=== PATIENT | female | born 1945 | race Caucasian/White ===

== ENCOUNTER 2019-09-01 07:59 | Observation (INO) ==
[2019-09-01] MEDS ORDERED: ENOXAPARIN SODIUM 40 MG/0.4 ML SYRG SC SCH (11:45)
[2019-09-01] MEDS ORDERED: ALBUTEROL SULFATE 2.5 MG/0.5 ML VIAL.NEB IH PRN (11:49)
[2019-09-01] MEDS ORDERED: LEVOFLOXACIN IN DEXTROSE 5 % 750 MG/150 ML BAG IV SCH (12:00)
--- NOTE | 2019-09-01 12:01 | HP ---
Chief Complaint - Chief Complaint Date of Service: 09/01/19 Time of Service: 12:00 Chief Complaint: SOB History of Present Illness: Patient is a 73 y/o F with a PMHx of CAD with 3 stents, Type II DM, hypertenison, COPD, hypothyroidism, restless leg, and chronic pain here to establish care. Patient seem a little SOB and wheezy while walking back to the room. Patient previous PCP was Dr. Brower at [facility]. She is accompanied by her son. She is a poor historian on her PMHx. Drophammer Operator is Dr. Pitt. Patient states she has been SOB for a couple of weeks and not feeling good and previous PCP had placed her on prednisone for prevention of infection. Denies CP. States she uses oxygen overnight PRN. After review of the past medical history and vital signs and physical exam, noticed patient was having difficulty breathing saturating at 93% on room air with a respiratory rate of 24 remaining vital signs were stable. Administered DuoNeb treatment with improvement of symptoms. Ordered a stat chest x-ray which revealed fluid overload and concern for infectious process versus malignancy. Recommended CT chest follow-up. Will complete CT chest outpatient. Stat labs obtained and discussed with patient. Recommend patient be admitted for acute exacerbation of COPD and acute on chronic congestive heart failure. Initially patient was reluctant however she would like to be discharged by [facility]. Will request MR from Cardiology after discharge. Patient sent to the floor and admitted to [facility]. Medical History (Last Reviewed 09/01/19 @ 12:13 by Angie Lebron RN) CAD (coronary artery disease) COPD (chronic obstructive pulmonary disease) Chronic pain History of ganglion cyst Hypertension Hypothyroidism Restless leg Type II diabetes mellitus Surgical History: Surgical History (Last Reviewed 09/01/19 @ 12:13 by Angie Lebron RN) History of total hysterectomy History of coronary artery stent placement History of tonsillectomy Hx of appendectomy Family History: Family History (Last Reviewed 09/01/19 @ 12:13 by Angie Lebron RN) Father Diabetes Heart disease Mother Heart disease Sister Cancer mouth cancer Brother Cancer lung cancer Social History: (Last Reviewed 09/01/19 @ 12:14 by Angie Lebron RN) Social History: Marital status: / lives independently: Yes number of children: 3 Highest education level completed: high school graduate Service: No Tobacco: Smoking Status: Former smoker Tobacco: How many years used: 5 how long ago did patient quit smokin years ago Alcohol: alcohol intake: never Dietary Habits: caffeine: Yes caffeine comment: daily Type: coffee Review Of Systems (GEN) - Review of Systems Generalized/Overall Review: Present: Weakness, Fatigue. Absent: Fever Respiratory: Present: Shortness of Breath, Orthopnea, Wheezing. Absent: Cough Cardiac: Absent: Chest Pain, Edema Abdominal: Absent: Abdominal Pain Neurological: Present: Tingling - of LE BL Skin: Present: Dryness Immunizations: IMMUNIZATION HX Immunizations Up to Date Yes History of Influenza Vaccine No Hx Pneumococcal Vaccination More Information Required Allergies/Adverse Reactions: Allergies Allergy/AdvReac Type Severity Reaction Status Date / Time nitrofurantoin Allergy Intermediate Verified 09/01/19 12:14 [From Macrobid] nitrofurantoin Allergy Intermediate Verified 09/01/19 12:14 macrocrystalline [From Macrobid] Sulfa (Sulfonamide Allergy Intermediate Verified 09/01/19 12:14 Antibiotics) Home Medications: HOME MEDICATIONS Albuterol Sulfate [Albuterol Sulfate 2.5 MG/0.5ML] 1 vial INHALATION Q6H PRN 09/09/16 [Last Taken Unknown] Levothyroxine Sodium [Levo-T] 25 mcg PO DAILY 09/09/16 [Last Taken Unknown] Aspirin [Children's Aspirin] 81 mg PO DAILY 03/25/18 [Last Taken Unknown] Atorvastatin Calcium [Lipitor] 40 mg PO HS 03/25/18 [Last Taken Unknown] Calcitriol 0.25 mcg PO DAILY 03/25/18 [Last Taken Unknown] Isosorbide Mononitrate [Imdur] 30 mg PO DAILY 03/25/18 [Last Taken Unknown] Venlafaxine HCl [Venlafaxine HCl ER] 150 mg PO DAILY 03/25/18 [Last Taken Unknown] Betamethasone/Propylene Glyc [Betamethasone Dp Aug 0.05% Crm] 15 gm TOPICAL DAILY 09/01/19 [Last Taken Unknown] Cefdinir 300 mg PO BID 09/01/19 [Last Taken Unknown] Methylphenidate HCl [Ritalin (Methylphenidate)] 5 mg PO BID 09/01/19 [Last Taken Unknown] Metoprolol Tartrate 75 mg PO BID 09/01/19 [Last Taken Unknown] Saccharomyces Boulardii [Florastor] 250 mg PO BID 09/01/19 [Last Taken Unknown] gabapentin 300 mg capsule 600 mg PO TID cap 09/01/19 [Last Taken Unknown] guaifenesin 600 mg tablet, extended release 12 hr 600 mg PO BID 09/01/19 [Last Taken Unknown] melatonin 5 mg capsule 5 mg PO HS cap 09/01/19 [Last Taken Unknown] montelukast 10 mg tablet 10 mg PO DAILY 09/01/19 [Last Taken Unknown] Exam - Exam Constitutional: Present: Alert, Oriented x3, Cooperative, Well developed, Well nourished, Mild distress ENT Exam: Present: hearing grossly normal Neck: Present: non-tender, full range of motion, supple Respiratory: Present: chest non-tender, accessory muscle use, crackles - LL BL, wheezing - expiratory and diffuse, expiration (prolonged) Cardiovascular/Chest: Present: normal peripheral pulses, regular rate, rhythm, no edema, no JVD, no murmur Abdomen: Present: Normal bowel sounds, soft Extremity: Present: normal range of motion, non-tender, no pedal edema Skin Exam: Present: normal color, warm/dry Neurologic: Present: alert, oriented x 3 Appearance: Present: appropriate appearance Eye contact: Present: cooperative Assessment/Plan - Narrative Narrative: (1) Acute on chronic diastolic CHF (congestive heart failure) Problem: Acute - Diurese patient with Bumex 1mg IV BID - Continue lasix 40 mg PO BID - Daily weights - CXR in AM - Troponins x2 Q6H - Strict Intake and Output -1500ml fluid restriction (2) Acute exacerbation of chronic obstructive pulmonary disease (COPD) Problem: Acute - Levaquin 750 mg PO QD - Prednisone 10 mg PO QD - O2 PRN - Breating treatments of budenoside q12h, duo-neb q4-6h (3) CKD (chronic kidney disease) Problem: Chronic (4) Insulin dependent diabetes mellitus Problem: Chronic FEN: Heart Healthy Diet, Consistent Carbs, Fluid restriction of 1500 ml DVT PPX: Lovenox 40 mg SC Q24H CODE STATUS: Full Code Disposition: Anticipate discharge within 24-48 hours. - Assessment/Plan (1) Acute on chronic diastolic CHF (congestive heart failure) Problem: Acute (2) Acute exacerbation of chronic obstructive pulmonary disease (COPD) Problem: Acute (3) CKD (chronic kidney disease) Problem: Chronic (4) Insulin dependent diabetes mellitus Problem: Chronic
[2019-09-01] MEDS: ALBUTEROL SULFATE/IPRATROPIUM 3 ML NEBU IH SCH ×2 (12:40→18:14)
[2019-09-01] MEDS: GABAPENTIN 600 MG TABLET PO SCH ×2 (13:07→17:09)
[2019-09-01] MEDS: rOPINIRole HCL 1 MG TABLET PO SCH ×2 (13:08→17:09)
[2019-09-01] MEDS: BUMETANIDE 0.25 MG/ML VIAL IV SCH ×2 (13:31→21:21)
[2019-09-01] MEDS: INSULIN LISPRO 100 UNITS/ML VIAL SC SCH ×2 (17:10→21:26)
[2019-09-01] MEDS: BUDESONIDE 0.25 MG/2 ML VIAL.NEB IH SCH (18:15)
[2019-09-01] MEDS ORDERED: MELATONIN 3,000 MCG TABLET PO SCH (21:00)
[2019-09-01] MEDS ORDERED: ROSUVASTATIN CALCIUM 20 MG TABLET PO SCH (21:00)
[2019-09-01] MEDS: SACCHAROMYCES BOULARDII 250 MG CAPSULE PO SCH (21:23)
[2019-09-01] MEDS: FUROSEMIDE 40 MG TABLET PO SCH (21:29)
[2019-09-01] MEDS: METOPROLOL TARTRATE 25 MG TABLET PO SCH (21:32)
[2019-09-01] MEDS: INSULIN GLARGINE,HUM.REC.ANLOG 100 UNITS/ML VIAL SC SCH (21:33)
[2019-09-02] MEDS: ALBUTEROL SULFATE/IPRATROPIUM 3 ML NEBU IH SCH ×2 (04:16→06:07)
[2019-09-02] MEDS: BUDESONIDE 0.25 MG/2 ML VIAL.NEB IH SCH (06:03)
[2019-09-02 06:28] LABS: Hematocrit 38.4 % (37.0-47.0); Hemoglobin 11.9 gm/dL (12.5-16.0); Mean Cell Volume 92.5 fl (78-100); Mean Corpuscular Hemoglobin 28.7 pg (27-31); Mean Platelet Volume 11.2 fl (8-12.5); Neutrophil # 7.1 K/mm3 (1.3-6.0); Platelet Count 217 K/mm3 (150-450); Red Blood Count 4.15 M/mm3 (4.2-5.4); Red Cell Distribution Width 15.4 % (11.5-14.0); White Blood Count 9.1 K/mm3 (4.0-10.5)
[2019-09-02 06:29] LABS: Albumin * 2.2 gm/dl (3.4-5.0); Anion Gap 11.4 mmol/L (6.8-13.8); BUN/Creatinine Ratio 25.6 (9.0-21.6); Bilirubin, Total 0.4 mg/dL (0.0-1.1); Ca. Corrected For Albumin 9.8 mg/dL (8.4-10.2); Calcium * 8.7 mg/dL (7.9-10.9); Carbon Dioxide 31.2 mmol/L (24-32.6); Potassium 3.6 mmol/L (3.4-4.6); Total Protein 6.3 gm/dL (6.2-8.2)
[2019-09-02] MEDS ORDERED: LEVOTHYROXINE SODIUM 25 MCG TABLET PO SCH (07:00)
[2019-09-02] MEDS: INSULIN LISPRO 100 UNITS/ML VIAL SC SCH (07:49)
[2019-09-02] MEDS: SACCHAROMYCES BOULARDII 250 MG CAPSULE PO SCH (08:13)
[2019-09-02] MEDS: GABAPENTIN 600 MG TABLET PO SCH (08:14)
[2019-09-02] MEDS: METOPROLOL TARTRATE 25 MG TABLET PO SCH (08:14)
[2019-09-02] MEDS: FUROSEMIDE 40 MG TABLET PO SCH (08:14)
[2019-09-02] MEDS: BUMETANIDE 0.25 MG/ML VIAL IV SCH (08:15)
[2019-09-02] MEDS: rOPINIRole HCL 1 MG TABLET PO SCH (08:15)
[2019-09-02] MEDS: INSULIN GLARGINE,HUM.REC.ANLOG 100 UNITS/ML VIAL SC SCH (08:22)
[2019-09-02] MEDS ORDERED: ISOSORBIDE MONONITRATE 30 MG TAB.SR.24H PO SCH (09:00)
[2019-09-02] MEDS ORDERED: VENLAFAXINE HCL 150 MG CAP.SR.24H PO SCH (09:00)
[2019-09-02] MEDS ORDERED: predniSONE 10 MG TABLET PO SCH (09:00)
[2019-09-02] MEDS ORDERED: MONTELUKAST SODIUM 10 MG TABLET PO SCH (09:00)
[2019-09-02] MEDS ORDERED: FUROSEMIDE 40 MG PO SCH (09:00)
[2019-09-02] MEDS ORDERED: ASPIRIN 81 MG TAB.CHEW PO SCH (09:00)
[2019-09-02] MEDS ORDERED: CALCITRIOL 0.25 MCG CAPSULE PO SCH (09:00)
--- NOTE | 2019-09-02 09:02 | DS ---
(1) Acute on chronic diastolic CHF (congestive heart failure) Problem: Acute (2) Acute exacerbation of chronic obstructive pulmonary disease (COPD) Problem: Acute (3) Acute kidney injury superimposed on chronic kidney disease Problem: Acute (4) CKD (chronic kidney disease) Problem: Chronic Qualifiers: Chronic kidney disease stage: stage 3 (moderate) Qualified Code(s): N18.3 - Chronic kidney disease, stage 3 (moderate) (5) Insulin dependent diabetes mellitus Problem: Chronic Date of Discharge:: 09/02/19 Description of Stay: 73-year-old female with multiple comorbidities admitted from clinic for acute on chronic congestive heart failure and acute exacerbation of COPD. Vital signs in clinic or significant for tachypnea and oxygen saturation of 93% on room air. Physical examination was consistent with mild respiratory distress, use of accessory muscles, audible wheezing, on auscultation I appreciated prolonged expiratory wheezing minimal movement of air diffusely and crackles of the bilateral lower lobes. Stat chest x-ray was consistent with pulmonary vascular congestion and concern of an infiltrate which may be infectious versus malignancy. CT chest recommended for follow-up, will complete CT chest to be completed outpatient. CT chest ordered in clinic prior to admission. BNP upon admission was greater than 6000, cardiac work-up was largely unremarkable, CMP consistent with acute kidney injury with a creatinine of 1.79. On admission I could not determine if elevation of creatinine was a result of acute on chronic kidney injury as there were no previous records for comparison, however after overnight diuresis, creatinine improved to 1.5. In regards to acute on chronic congestive heart failure, patient started on Bumex 1 mg IV twice daily, continued Lasix 40 mg p.o. twice daily. Overnight patient had urine output of 1600 mL, with a balance deficit of 600ml. On physical examination, minimal crackles in the left lower lobe however significant improvement from admit. Patient established with a kapok machine operator to [facility], Dr. Pitt. . will try to obtain records from Dr. Pitt, if no records are available at follow-up visit will complete an echo and nuclear stress test. In regards to acute exacerbation of COPD patient on Levaquin 750 mg p.o. once daily patient is on day #2 of 7. Patient already on prednisone and was being weaned off, continue prednisone 10 mg. Patient has 5 tablets left at home, I will not discharge patient with a prescription for prednisone, advised patient to continue to weaning off prednisone upon. Started on breathing treatments of Budenoside and DuoNeb's. Discharge patient on duo nebs and budenoside and start ipratropium. Will complete PFTs and gold staging outpatient. Will optimize medication until PFTs are available, and adjust medications accordingly. In regards to insulin dependent diabetes mellitus type 2, A1c is 11.2. She came in stating she is on Lantus 50 units subcutaneous twice daily, however. Glucose was 65 this morning, discussed with patient i will decrease Lantus to 30 units at bedtime and continue with sliding scale 3 times daily with meals. Will provide patient with a prescription for lispro and paperwork for moderate slidin g scale dosing. Discussed about checking blood sugars 4 times a day and recording it and to bring blood sugar log to her follow-up appointment 1 week from discharge. In regards to sleep apnea, patient stated she does have a CPAP machine via [facility] however it is broken she is unable to adjust the same settings. RT was able to contact [facility] and they confirmed she does have a CPAP machine via them ,however there is no sleep study on record. Patient will contact [facility] for a new CPAP machine. Settings obtained from [facility] were 4/20, machine ordered during hospitalization with settings obtained from [facility] and auto titrated, and patient tolerated it well. Advised patient to continue with oxygen overnight at 2 L. Care phone number provided to patient on discharge paperwork. Patient voiced understanding and is agreeable with plan. Follow-up care: Will repeat CMP, BNP at next office visit. Pending results we will adjust Lasix dose. We will follow-up on [facility] referral outpatient for sleep study and overnight pulse oximetry and ensure patient has a CPAP machine. [facility] phone number provided on discharge paperwork patient is [phone]. Medication changes upon discharge: Lasix 40 mg p.o. twice daily, potassium 20 mEq daily, Bumex 1 mg twice daily for 3 days, Levaquin 750 mg p.o. daily for 6 days, prednisone 10 mg p.o. daily for 5 days (weaning off prednisone), DuoNeb every 6 hours as needed for shortness of breath or wheezing, begin aside twice daily, Yupelri 175mcg/3mL nebulizer daily, Lantus decreased to 30 units at bedtime, Lisinopril 5 mg PO QD, lispro 3 times daily with meals with moderate dose sliding scale. Medication list will be provided to patient and changes have been discussed with patient. Referrals: Memo completed on outpatient office visit Disposition: Patient is stable for discharge we will follow-up with patient in 1 week. Appointment will be provided upon discharge. Primary care provider: Dr. Bass Procedures Performed: none Results and Findings: Lab Pending Results 09/01/19 12:23: Troponin I 0.090 09/01/19 18:02: Troponin I 0.070 09/02/19 05:57: WBC 9.1, RBC 4.15 L, Hgb 11.9 L, Hct 38.4, MCV 92.5, MCH 28.7, MCHC 31.0 L, RDW 15.4 H, Plt Count 217, MPV 11.2, Immature Gran % (Auto) 0.70 H, Immature Gran # (Auto) 0.06 H, Neutrophils % 78.0 H, Lymphocytes % 11.7 L, Monocytes % 7.9, Eosinophils % 1.1, Basophils % 0.6, Nucleated RBC % 0.0, Neutrophils # 7.1 H, Lymphocytes # 1.06 L, Monocytes # 0.7, Eosinophils # 0.1, Absolute Basophils 0.1 09/02/19 05:57: Sodium 142, Plasma Sodium 141, Potassium 3.6, Chloride 103, Carbon Dioxide 31.2, Anion Gap 11.4, BUN 40 H, Creatinine 1.56 H, Est GFR (Non- Af Amer) 34 L, BUN/Creatinine Ratio 25.6 H, Random Glucose 65 L D, Calcium 8.7, Calcium Adj for Albumin 9.8, Total Bilirubin 0.4, AST 11, ALT 15 L, Alkaline Phosphatase 52, Total Protein 6.3, Albumin 2.2 L Discharge Location: Home Disposition: Home self-care Condition: Fair Discharge Activity: Activity as tolerated Discharge Diet: Consistent carbs, Low salt Referrals: Kiet Bass MD [Primary Care Provider] - One Week Problem Oriented Discharge Instructions to Patient/Family: Heart Failure, [id number] Additional Patient Instructions (free text): Call [facility] at [phone] to have someone come to assess your equipment. Prescriptions (Any new or edited meds): Albuterol Sulfate/Ipratropium [Duoneb 2.5-0.5MG/3ML Soln] 3 ml INHALATION Q6HRT #5 nebu Transmission Status: Received by [place], [place] Budesonide 1 mg INHALATION BID #5 ampul.neb Transmission Status: Pending to [place] Bumetanide [Bumex] 1 mg PO BID 3 Days #6 tab Transmission Status: P[place] to [place] Insulin Lispro [Humalog] 0 units SC ACHSINS #10 vial Transmission Status: Received [place] Potassium Chloride [Klor-Con M20] 20 meq PO DAILY #30 tab.er.prt Transmission Status: P[place] to [place] Insulin Glargine,Hum.rec.anlog [Lantus] 30 units SC HS #10 vial Transmission Status: Re[place] Furosemide [Lasix] 40 mg PO BID #60 tab Transmission Status: Re[place] Levofloxacin [Levaquin] 750 mg PO DAILY 6 Days #6 tab Transmission Status: Pending to [place] Revefenacin [Yupelri] 175 mcg INHALATION DAILY #5 vial.neb Transmission Status: Pending to [place] Complete Home Medications List: Complete Home Medication List: Levothyroxine Sodium [Levo-T] 25 mcg PO DAILY 09/09/16 Aspirin 81 mg PO DAILY 03/25/18 Atorvastatin Calcium [Lipitor] 40 mg PO HS 03/25/18 Calcitriol 0.25 mcg PO DAILY 03/25/18 Isosorbide Mononitrate [Imdur] 30 mg PO DAILY 03/25/18 Venlafaxine HCl [Venlafaxine HCl ER] 150 mg PO DAILY 03/25/18 Betamethasone/Propylene Glyc [Betamethasone Dp Aug 0.05% Crm] 15 gm TOPICAL DAILY 09/01/19 Methylphenidate HCl [Ritalin] 5 mg PO BID 09/01/19 Metoprolol Tartrate 75 mg PO BID 09/01/19 gabapentin 300 mg capsule 600 mg PO TID cap 09/01/19 guaifenesin 600 mg tablet, extended release 12 hr 600 mg PO BID 09/01/19 melatonin 5 mg capsule 5 mg PO HS cap 09/01/19 montelukast 10 mg tablet 10 mg PO DAILY 09/01/19 Albuterol Sulfate/Ipratropium [Duoneb 2.5-0.5MG/3ML Soln] 3 ml INHALATION Q6HRT #5 nebu 09/02/19 Budesonide 1 mg INHALATION BID #5 ampul.neb 09/02/19 Bumetanide [Bumex] 1 mg PO BID 3 Days #6 tab 09/02/19 Furosemide [Lasix] 40 mg PO BID #60 tab 09/02/19 Insulin Glargine,Hum.rec.anlog [Lantus] 30 units SC HS #10 vial 09/02/19 Insulin Lispro [Humalog] 0 units SC ACHSINS #10 vial 09/02/19 Levofloxacin [Levaquin] 750 mg PO DAILY 6 Days #6 tab 09/02/19 Lisinopril [Zestril] 10 mg PO QAM #30 tab 09/02/19 Potassium Chloride [Klor-Con M20] 20 meq PO DAILY #30 tab.er.prt 09/02/19 Revefenacin [Yupelri] 175 mcg INHALATION DAILY #5 vial.neb 09/02/19
[2019-09-02 11:04] VITALS: BP 124/61
== END 2019-09-02 11:33 | disposition home or self-care (01) ==
LOC: CCFAL → MS 07:59 → RAD 07:59
PROVIDERS: ADMIT Family Medicine; ATTEND Family Medicine
DX: N18.3 Chronic kidney disease, stage 3 (moderate); J44.1 Chronic obstructive pulmonary disease with (acute) exacerbation; I50.33 Acute on chronic diastolic (congestive) heart failure; E11.22 Type 2 diabetes mellitus with diabetic chronic kidney disease; Z79.4 Long term (current) use of insulin
CPT/HCPCS: 36415; 71020; 71046; 80053; 80061; 82043; 82570; 83036; 83519; 83880; 84443; 84484; 85025; 93005; 94640; 94660; 94664; 96365; 96372; 96375; G0378; G0379

== ENCOUNTER 2019-09-09 16:17 | Inpatient (IN) ==
[2019-09-09] MEDS ORDERED: NORMAL SALINE 500 ML IV PRN (16:35)
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
[2019-09-09 16:56] LABS: Mean Cell Volume 89.4 fl (78-100); Mean Corpuscular Hemoglobin 28.6 pg (27-31); Mean Platelet Volume 10.2 fl (8-12.5); Neutrophil # 4.7 K/mm3 (1.3-6.0); Neutrophil % 84.1 % (42-75.0); Platelet Count 83 K/mm3 (150-450); Red Blood Count 2.17 M/mm3 (4.2-5.4); Red Cell Distribution Width 15.4 % (11.5-14.0); White Blood Count 5.6 K/mm3 (4.0-10.5)
[2019-09-09 16:57] LABS: Hematocrit 19.4 % (37.0-47.0); Hemoglobin 6.2 gm/dL (12.5-16.0)
[2019-09-09 17:15] LABS: INR 1.22 INR (0.92-1.08); Partial Thrombolplastin Time 30.6 Seconds (24-32)
[2019-09-09 17:21] LABS: Anion Gap 12.1 mmol/L (6.8-13.8); BUN/Creatinine Ratio 30.6 (9.0-21.6); Bilirubin, Total 0.2 mg/dL (0.0-1.1); Carbon Dioxide 15.6 mmol/L (24-32.6); Magnesium 0.8 mg/dL (1.2-2.8); Potassium 2.7 mmol/L (3.4-4.6); Troponin I 0.04 ng/mL (0.00-0.10)
[2019-09-09 17:32] LABS: Ca. Corrected For Albumin 7.1 mg/dL (8.4-10.2)
[2019-09-09 17:44] LABS: Urine Bilirubin Negative (NEGATIVE); Urine Blood Negative /ul (NEGATIVE); Urine Ketone Negative (NEGATIVE); Urine Nitrite Negative (NEGATIVE); Urine Protein 100 mg/dL (NEGATIVE); Urine Specific Gravity >=1.030 SP.GR. (1.005-1.010); Urine Urobilinogen Normal (NORMAL)
[2019-09-09] MEDS ORDERED: NORMAL SALINE 500 ML IV ONE (17:51)
[2019-09-09] MEDS: POTASSIUM CHLORIDE IN WATER 100 ML IV SCH ×4 (18:04→21:57)
[2019-09-09] MEDS ORDERED: LEVOFLOXACIN IN DEXTROSE 5 % 750 MG/150 ML BAG IV ONE (18:22)
[2019-09-09] MEDS ORDERED: NORMAL SALINE 1,000 ML IV ONE ×2 (18:24→18:30)
[2019-09-09 18:29] LABS: Urine Appearance Clear (CLEAR); Urine Bacteria None Seen; Urine Color Yellow; Urine RBC None Seen /hpf (0-5); Urine WBC None Seen /hpf (0-5)
[2019-09-09] MEDS ORDERED: metroNIDAZOLE/SODIUM CHLORIDE 500 MG/100 ML BAG IV SCH (18:30)
[2019-09-09] MEDS ORDERED: LEVOFLOXACIN 500 MG TABLET PO SCH ×2 (19:45→22:21)
[2019-09-09] MEDS: metroNIDAZOLE 500 MG TABLET PO SCH (20:03)
[2019-09-09] MEDS ORDERED: FUROSEMIDE 10 MG/ML VIAL IV ONE (20:17)
--- NOTE | 2019-09-09 21:26 | HP ---
Chief Complaint - Chief Complaint Date of Service: 09/09/19 Time of Service: 20:00 Chief Complaint: Weakness, anemia, diarrhea, nausea vomiting. History of Present Illness: Nora Gage is a 73-year-old female admitted through the emergency room with nausea vomiting and diarrhea and with an acute anemia (hemoglobin 6.5 g) to which the etiology remains uncertain. She has been stabilized in ER with IV fluids and is had 1 unit of packed red blood cells. She is requesting Imodium for the diarrhea. We will Hemoccult each stool and screen for C. difficile. She was also hypokalemic and has received 2K riders out of 4 ordered. ER has already ordered Levaquin and metronidazole to be given IV but that require a third IV site. She believes she can take the pills instead and would like to try to instead of having a third IV placed. She has not vomited since she is been here. Since she had stabilized in the emergency room. And because we had staffing issues for the SCU I elected to admit her to general medical floor where we would do vital signs hourly for 4 hours and then every 2 hours through the night thereafter. She will get 20 mg of furosemide IV after the first unit because of her history of congestive failure. She has no signs or symptoms of CHF at this time. I will have them recheck hemoglobin hematocrit 2 hours after the second unit is infused. She will have morning lab ordered to recheck her electrolytes and renal status. Medical History (Last Reviewed 09/09/19 @ 16:39 by JOHNY Pérez) CAD (coronary artery disease) COPD (chronic obstructive pulmonary disease) Chronic pain History of ganglion cyst Hypertension Hypothyroidism Restless leg Type II diabetes mellitus Surgical History: Surgical History (Last Reviewed 09/09/19 @ 16:39 by JOHNY Pérez) History of total hysterectomy History of coronary artery stent placement History of tonsillectomy Hx of appendectomy Family History: Family History (Last Reviewed 09/09/19 @ 16:39 by JOHNY Pérez) Father Diabetes Heart disease Mother Heart disease Sister Cancer mouth cancer Brother Cancer lung cancer Social History: (Last Reviewed 09/09/19 @ 16:39 by JOHNY Pérez) Social History: Marital status: / lives independently: Yes number of children: 3 Highest education level completed: high school graduate Service: No Tobacco: Smoking Status: Former smoker Tobacco: How many years used: 5 how long ago did patient quit smokin years ago Alcohol: alcohol intake: never Dietary Habits: caffeine: Yes caffeine comment: daily Type: coffee Review Of Systems (GEN) - Review of Systems Generalized/Overall Review: Present: Weakness, Malaise EENTM: Present: No Symptoms Reported Respiratory: Present: No Symptoms Reported Cardiac: Present: No Symptoms Reported Abdominal: Present: Nausea, Vomiting, Diarrhea Genitourinary: Present: No Symptoms Reported Musculoskeletal: Present: No Symptoms Reported Neurological: Present: Anxiety, Weakness Skin: Present: No Symptoms Reported Endocrine: Present: No Symptoms Reported Immunizations: IMMUNIZATION HX Immunizations Up to Date Yes History of Influenza Vaccine No Hx Pneumococcal Vaccination More Information Required Allergies/Adverse Reactions: Allergies Allergy/AdvReac Type Severity Reaction Status Date / Time nitrofurantoin Allergy Intermediate Verified 09/01/19 12:14 [From Macrobid] nitrofurantoin Allergy Intermediate Verified 09/01/19 12:14 macrocrystalline [From Macrobid] Sulfa (Sulfonamide Allergy Intermediate Verified 09/01/19 12:14 Antibiotics) Home Medications: HOME MEDICATIONS Levothyroxine Sodium [Levo-T] 25 mcg PO DAILY 09/09/16 [Last Taken Unknown] Aspirin 81 mg PO DAILY 03/25/18 [Last Taken Unknown] Atorvastatin Calcium [Lipitor] 40 mg PO HS 03/25/18 [Last Taken Unknown] Calcitriol 0.25 mcg PO DAILY 03/25/18 [Last Taken Unknown] Isosorbide Mononitrate [Imdur] 30 mg PO DAILY 03/25/18 [Last Taken Unknown] Venlafaxine HCl [Venlafaxine HCl ER] 150 mg PO DAILY 03/25/18 [Last Taken Unknown] Betamethasone/Propylene Glyc [Betamethasone Dp Aug 0.05% Crm] 15 gm TOPICAL DAILY 09/01/19 [Last Taken Unknown] Methylphenidate HCl [Ritalin] 5 mg PO BID 09/01/19 [Last Taken Unknown] Metoprolol Tartrate 75 mg PO BID 09/01/19 [Last Taken Unknown] gabapentin 300 mg capsule 600 mg PO TID cap 09/01/19 [Last Taken Unknown] guaifenesin 600 mg tablet, extended release 12 hr 600 mg PO BID 09/01/19 [Last Taken Unknown] melatonin 5 mg capsule 5 mg PO HS cap 09/01/19 [Last Taken Unknown] montelukast 10 mg tablet 10 mg PO DAILY 09/01/19 [Last Taken Unknown] Albuterol Sulfate/Ipratropium [Duoneb 2.5-0.5MG/3ML Soln] 3 ml INHALATION Q6HRT #5 nebu 09/02/19 [Last Taken Unknown] Budesonide 1 mg INHALATION BID #5 ampul.neb 09/02/19 [Last Taken Unknown] Furosemide [Lasix] 40 mg PO BID #60 tab 09/02/19 [Last Taken Unknown] Insulin Glargine,Hum.rec.anlog [Lantus] 30 units SC HS #10 vial 09/02/19 [Last Taken Unknown] Insulin Lispro [Humalog] 0 units SC ACHSINS #10 vial 09/02/19 [Last Taken Unknown] Lisinopril [Zestril] 10 mg PO QAM #30 tab 09/02/19 [Last Taken Unknown] Potassium Chloride [Klor-Con M20] 20 meq PO DAILY #30 tab.er.prt 09/02/19 [Last Taken Unknown] Revefenacin [Yupelri] 175 mcg INHALATION DAILY #5 vial.neb 09/02/19 [Last Taken Unknown] Exam - Exam Vital Signs: Vital Signs - Last Taken Temp 36.6 C 09/09/19 19:08 Pulse 89 09/09/19 19:08 Resp 12 09/09/19 19:08 BP 146/63 09/09/19 19:08 Pulse Ox 97 09/09/19 19:08 Constitutional: Present: Alert, Oriented x3, Cooperative, Well developed, Well nourished, Mild distress, Elderly, Overweight ENT Exam: Present: normal ENT inspection, hearing grossly normal, pharynx normal, TMs normal Eye Exam: bilateral eye: normal inspection, PERRL, EOMI Neck: Present: non-tender, limited range of motion Back Exam: Present: normal inspection, no CVA tenderness, no vertebral tenderness Breasts: Present: Exam deferred Respiratory: Present: chest non-tender, lungs clear, normal breath sounds, no respiratory distress, no accessory muscle use Cardiovascular/Chest: Present: normal peripheral pulses, regular rate, rhythm, no chest tenderness, no edema, no gallop, no JVD, no murmur, no rub Peripheral Pulses: carotid (R): 2+, carotid (L): 2+, radial (R): 2+, radial (L): 2+ Abdomen: Present: Normal bowel sounds, soft, tender /Rectal: Present: Exam deferred Extremity: Present: normal range of motion, non-tender, normal inspection, no pedal edema, no calf tenderness, normal capillary refill Skin Exam: Present: pallor Lymphatic: Present: no adenopathy Neurologic: Present: hide washer II-XII nml as tested, no motor/sensory deficits, alert, normal mood/affect, oriented x 3 Appearance: Present: appropriate appearance, neat, no memory impairment, impaired insight Eye contact: Present: cooperative, good eye contact, normal speech Thoughts: Present: normal thought pattern, no apparent hallucination Diagnostic Studies: Abnormal Lab Results 09/09/19 09/09/19 09/09/19 Range/Units 16:45 16:45 16:45 RBC 2.17 L (4.2-5.4) M/mm3 Hgb 6.2 L* D (12.5-16.0) gm/dL Hct 19.4 L* D (37.0-47.0) % RDW 15.4 H (11.5-14.0) % Plt Count 83 L (150-450) K/mm3 Immature Gran % (Auto) 0.50 H (0.001-0.429) % Neutrophils % 84.1 H (42-75.0) % Lymphocytes % 9.2 L (20-51) % Lymphocytes # 0.51 L (1.5-3.5) k/mm3 PT 12.0 H (9.1-10.7) Seconds INR (Anticoag Therapy) 1.22 H (0.92-1.08) INR pO2 (83.0-108.0) mmHg Base Excess (-2.0-3.0) mmol/L ABG O2 Sat (Measured) (94.0-98.0) % Plasma Sodium 145 H (130-142) mmol/L Potassium 2.7 L D (3.4-4.6) mmol/L Chloride 117 H (97-106) mmol/L Carbon Dioxide 15.6 L (24-32.6) mmol/L BUN 56 H (3-23) mg/dL Creatinine 1.83 H (0.4-1.4) mg/dL Est GFR (Non-Af Amer) 29 L (60-130) mL/min BUN/Creatinine Ratio 30.6 H (9.0-21.6) Random Glucose 276 H (70-110) mg/dL Calcium Adj for Albumin 7.1 L (8.4-10.2) mg/dL Magnesium 0.8 L (1.2-2.8) mg/dL ALT 9 L (19-67) U/L Alkaline Phosphatase 29 L (50-170) U/L Total Protein 3.0 L (6.2-8.2) gm/dL Albumin 1.0 L (3.4-5.0) gm/dl Urine Protein (NEGATIVE) mg/dL Urine Glucose (UA) (NEGATIVE) mg/dL Prot Sulfosalicylic Acd (0) mg/dL Crossmatch 09/09/19 09/09/19 09/09/19 Range/Units 17:33 17:40 17:50 RBC (4.2-5.4) M/mm3 Hgb (12.5-16.0) gm/dL Hct (37.0-47.0) % RDW (11.5-14.0) % Plt Count (150-450) K/mm3 Immature Gran % (Auto) (0.001-0.429) % Neutrophils % (42-75.0) % Lymphocytes % (20-51) % Lymphocytes # (1.5-3.5) k/mm3 PT (9.1-10.7) Seconds INR (Anticoag Therapy) (0.92-1.08) INR pO2 226.6 H (83.0-108.0) mmHg Base Excess -3.4 L (-2.0-3.0) mmol/L ABG O2 Sat (Measured) 99.4 H (94.0-98.0) % Plasma Sodium (130-142) mmol/L Potassium (3.4-4.6) mmol/L Chloride (97-106) mmol/L Carbon Dioxide (24-32.6) mmol/L BUN (3-23) mg/dL Creatinine (0.4-1.4) mg/dL Est GFR (Non-Af Amer) (60-130) mL/min BUN/Creatinine Ratio (9.0-21.6) Random Glucose (70-110) mg/dL Calcium Adj for Albumin (8.4-10.2) mg/dL Magnesium (1.2-2.8) mg/dL ALT (19-67) U/L Alkaline Phosphatase (50-170) U/L Total Protein (6.2-8.2) gm/dL Albumin (3.4-5.0) gm/dl Urine Protein 100 H (NEGATIVE) mg/dL Urine Glucose (UA) 100 H (NEGATIVE) mg/dL Prot Sulfosalicylic Acd 3+ H (0) mg/dL Crossmatch See Detail Laboratory Results WBC 5.6 K/mm3 (4.0-10.5) 09/09/19 16:45 RBC 2.17 M/mm3 (4.2-5.4) L 09/09/19 16:45 Hgb 6.2 gm/dL (12.5-16.0) L* D 09/09/19 16:45 Hct 19.4 % (37.0-47.0) L* D 09/09/19 16:45 MCV 89.4 fl (78-100) 09/09/19 16:45 MCH 28.6 pg (27-31) 09/09/19 16:45 MCHC 32.0 g/dl (32-36) 09/09/19 16:45 RDW 15.4 % (11.5-14.0) H 09/09/19 16:45 Plt Count 83 K/mm3 (150-450) L 09/09/19 16:45 MPV 10.2 fl (8-12.5) 09/09/19 16:45 Immature Gran % (Auto) 0.50 % (0.001-0.429) H 09/09/19 16:45 Immature Gran # (Auto) 0.03 K/mm3 (0.000-0.0310) 09/09/19 16:45 Neutrophils % 84.1 % (42-75.0) H 09/09/19 16:45 Lymphocytes % 9.2 % (20-51) L 09/09/19 16:45 Monocytes % 4.5 % (0.0-9) 09/09/19 16:45 Eosinophils % 1.3 % (0.0-3.0) 09/09/19 16:45 Basophils % 0.4 % (0.0-1.0) 09/09/19 16:45 Nucleated RBC % 0.0 k/mm3 (0-1) 09/09/19 16:45 Neutrophils # 4.7 K/mm3 (1.3-6.0) 09/09/19 16:45 Lymphocytes # 0.51 k/mm3 (1.5-3.5) L 09/09/19 16:45 Monocytes # 0.3 k/mm3 (0.0-1.0) 09/09/19 16:45 Eosinophils # 0.1 k/mm3 (0.0-0.7) 09/09/19 16:45 Absolute Basophils 0.0 k/mm3 (0.0-0.1) 09/09/19 16:45 PT 12.0 Seconds (9.1-10.7) H 09/09/19 16:45 INR (Anticoag Therapy) 1.22 INR (0.92-1.08) H 09/09/19 16:45 PTT ([place]) 30.6 Seconds (24-32) 09/09/19 16:45 pCO2 41.3 mmHg (32.0-45.0) 09/09/19 17:50 pO2 226.6 mmHg (83.0-108.0) H 09/09/19 17:50 HCO3 22.1 mmol/L (21.0-28.0) 09/09/19 17:50 Total CO2 23.4 mmol/L (19.0-24.0) 09/09/19 17:50 Base Excess -3.4 mmol/L (-2.0-3.0) L 09/09/19 17:50 ABG pH 7.35 (7.35-7.45) 09/09/19 17:50 ABG O2 Sat (Measured) 99.4 % (94.0-98.0) H 09/09/19 17:50 Sodium 142 mmol/L (132-142) 09/09/19 16:45 Plasma Sodium 145 mmol/L (130-142) H 09/09/19 16:45 Potassium 2.7 mmol/L (3.4-4.6) L D 09/09/19 16:45 Chloride 117 mmol/L (97-106) H 09/09/19 16:45 Carbon Dioxide 15.6 mmol/L (24-32.6) L 09/09/19 16:45 Anion Gap 12.1 mmol/L (6.8-13.8) 09/09/19 16:45 BUN 56 mg/dL (3-23) H 09/09/19 16:45 Creatinine 1.83 mg/dL (0.4-1.4) H 09/09/19 16:45 Est GFR (Non-Af Amer) 29 mL/min (60-130) L 09/09/19 16:45 BUN/Creatinine Ratio 30.6 (9.0-21.6) H 09/09/19 16:45 Random Glucose 276 mg/dL (70-110) H 09/09/19 16:45 Lactic Acid, Venous 1.2 mmol/L (0.4-2.0) 09/09/19 18:22 Calcium mg/dL (7.9-10.9) 09/09/19 16:45 Calcium Adj for Albumin 7.1 mg/dL (8.4-10.2) L 09/09/19 16:45 Magnesium 0.8 mg/dL (1.2-2.8) L 09/09/19 16:45 Total Bilirubin 0.2 mg/dL (0.0-1.1) 09/09/19 16:45 AST 8 U/L (0-48) 09/09/19 16:45 ALT 9 U/L (19-67) L 09/09/19 16:45 Alkaline Phosphatase 29 U/L (50-170) L 09/09/19 16:45 Troponin I 0.040 ng/mL (0.00-0.10) 09/09/19 16:45 B-Natriuretic Peptide 526 pg/mL (5-550) 09/09/19 16:45 Total Protein 3.0 gm/dL (6.2-8.2) L 09/09/19 16:45 Albumin 1.0 gm/dl (3.4-5.0) L 09/09/19 16:45 Urine Color Yellow 09/09/19 17:33 Urine Appearance Clear (CLEAR) 09/09/19 17:33 Urine pH 5.0 pH (5.0-7.0) 09/09/19 17:33 Ur Specific [place] >=1.030 SP.GR. (1.005-1.010) 09/09/19 17:33 Urine Protein 100 mg/dL (NEGATIVE) H 09/09/19 17:33 Urine Glucose (UA) 100 mg/dL (NEGATIVE) H 09/09/19 17:33 Urine Ketones Negative mg/dL (NEGATIVE) 09/09/19 17:33 Urine Blood Negative /ul (NEGATIVE) 09/09/19 17:33 Urine Nitrate Negative (NEGATIVE) 09/09/19 17:33 Urine Bilirubin Negative mg/dl (NEGATIVE) 09/09/19 17:33 Prot Sulfosalicylic Acd 3+ mg/dL (0) H 09/09/19 17:33 Urine Urobilinogen Normal EU/dl (NORMAL) 09/09/19 17:33 Ur Leukocyte Esterase Negative /ul (NEGATIVE) 09/09/19 17:33 Urine RBC None seen /hpf (0-5) 09/09/19 17:33 Urine WBC None seen /hpf (0-5) 09/09/19 17:33 Ur Epithelial Cells None seen /hpf (0-5) 09/09/19 17:33 Urine Bacteria None seen (NONE) 09/09/19 17:33 Urine Culture Comments No culture indicated 09/09/19 17:33 Stool Occult Blood Negative 09/09/19 17:50 Blood Type O Positive 09/09/19 17:40 Antibody Screen Negative 09/09/19 17:40 Crossmatch See Detail 09/09/19 17:40 Assessment/Plan - Narrative Narrative: 1. Infuse a second unit of packed red blood cells 2. Administer furosemide 20 mg IV push after the first unit is infused 3. Allow Imodium 4. Hemoccult all stools until positive 5. Recheck morning lab of CBC and BMP 6. Start oral Levaquin and oral Flagyl 7. Check stool for C. difficile - Assessment/Plan (1) Acute anemia Problem: Acute (2) Diarrhea Problem: Acute (3) Nausea Problem: Acute (4) History of CHF (congestive heart failure) Problem: Acute (5) History of chronic kidney disease Problem: Acute
[2019-09-09] MEDS ORDERED: INSULIN GLARGINE,HUM.REC.ANLOG 100 UNITS/ML VIAL SC ONE (21:50)
[2019-09-09] MEDS ORDERED: INSULIN LISPRO 100 UNITS/ML VIAL SC ONE (21:50)
[2019-09-09] MEDS ORDERED: FUROSEMIDE 10 MG/ML VIAL ONE (21:54)
[2019-09-09] MEDS ORDERED: ACETAMINOPHEN 325 MG TABLET PO ONE (21:55)
[2019-09-09] MEDS ORDERED: ALBUTEROL SULFATE/IPRATROPIUM 3 ML NEBU IH SCH (22:30)
[2019-09-09] MEDS: rOPINIRole HCL 1 MG TABLET PO SCH (22:43)
[2019-09-09] MEDS: ALBUTEROL SULFATE/IPRATROPIUM 3 ML NEBU IH SCH (22:50)
[2019-09-09] MEDS: FAMOTIDINE 20 MG in DEXTROSE 5 % IN WATER 100 ML IV SCH ×2 (23:01)
[2019-09-09] MEDS: MELATONIN 3,000 MCG TABLET PO SCH (23:02)
[2019-09-09] MEDS ORDERED: LEVOFLOXACIN 250 MG TABLET ONE (23:04)
[2019-09-10] MEDS: ALBUTEROL SULFATE/IPRATROPIUM 3 ML NEBU IH SCH ×6 (02:07→22:06)
[2019-09-10 02:53] LABS: Hemoglobin 13.3 gm/dL (12.5-16.0)
[2019-09-10 06:47] LABS: Hemoglobin 13.4 gm/dL (12.5-16.0); Mean Cell Volume 87.8 fl (78-100); Mean Corpuscular Hemoglobin 28.7 pg (27-31); Mean Corpuscular Hgb Conc 32.7 g/dl (32-36); Neutrophil # 5.7 K/mm3 (1.3-6.0); Neutrophil % 85.6 % (42-75.0); Platelet Count 119 K/mm3 (150-450); Red Blood Count 4.67 M/mm3 (4.2-5.4); Red Cell Distribution Width 15.4 % (11.5-14.0); White Blood Count 6.7 K/mm3 (4.0-10.5)
[2019-09-10] MEDS: LEVOTHYROXINE SODIUM 25 MCG TABLET PO SCH (07:05)
[2019-09-10] MEDS: SUCRALFATE 1 G/10 ML UDC PO SCH ×4 (07:05→21:20)
[2019-09-10 07:07] LABS: Albumin * 2.2 gm/dl (3.4-5.0); Anion Gap 9.2 mmol/L (6.8-13.8); BUN/Creatinine Ratio 28.4 (9.0-21.6); Bilirubin, Total 0.6 mg/dL (0.0-1.1); Calcium * 7.9 mg/dL (7.9-10.9); Carbon Dioxide 26.6 mmol/L (24-32.6); Magnesium 1.8 mg/dL (1.2-2.8); Potassium 4.8 mmol/L (3.4-4.6); Total Protein 6.1 gm/dL (6.2-8.2)
--- NOTE | 2019-09-10 07:52 | PN ---
Subjective - Date and Time Seen Date: 09/10/19 Time: 07:50 Subjective Narrative: No acute events overnight. Responded wellto transfusions. Patient is still not feeling well. Requesting RLS medications. Patient appears lethargic. Objective - Review of Systems Generalized/Overall Review: Reports: Weakness, Fatigue Respiratory: Denies: Shortness of Breath Cardiac: Denies: Chest Pain, Edema Abdominal: Denies: Vomiting, Abdominal Pain Neurological: Denies: Headache Skin: Reports: Bruising - right wrist and hand - Vitals Vitals: Last Vital Signs Temp 36.5 C 09/10/19 06:45 Pulse 87 09/10/19 06:45 Resp 16 09/10/19 06:45 BP 108/47 09/10/19 06:45 Pulse Ox 96 09/10/19 07:18 - Abnormal Lab Findings Abnormal Lab Findings: Abnormal Lab Results 09/09/19 09/09/19 09/09/19 Range/Units 16:45 16:45 16:45 RBC 2.17 L (4.2-5.4) M/mm3 Hgb 6.2 L* D (12.5-16.0) gm/dL Hct 19.4 L* D (37.0-47.0) % RDW 15.4 H (11.5-14.0) % Plt Count 83 L (150-450) K/mm3 Immature Gran % (Auto) 0.50 H (0.001-0.429) % Neutrophils % 84.1 H (42-75.0) % Lymphocytes % 9.2 L (20-51) % Lymphocytes # 0.51 L (1.5-3.5) k/mm3 PT 12.0 H (9.1-10.7) Seconds INR (Anticoag Therapy) 1.22 H (0.92-1.08) INR pO2 (83.0-108.0) mmHg Base Excess (-2.0-3.0) mmol/L ABG O2 Sat (Measured) (94.0-98.0) % Plasma Sodium 145 H (130-142) mmol/L Potassium 2.7 L D (3.4-4.6) mmol/L Chloride 117 H (97-106) mmol/L Carbon Dioxide 15.6 L (24-32.6) mmol/L BUN 56 H (3-23) mg/dL Creatinine 1.83 H (0.4-1.4) mg/dL Est GFR (Non-Af Amer) 29 L (60-130) mL/min BUN/Creatinine Ratio 30.6 H (9.0-21.6) Random Glucose 276 H (70-110) mg/dL Calcium Adj for Albumin 7.1 L (8.4-10.2) mg/dL Magnesium 0.8 L (1.2-2.8) mg/dL ALT 9 L (19-67) U/L Alkaline Phosphatase 29 L (50-170) U/L Total Protein 3.0 L (6.2-8.2) gm/dL Albumin 1.0 L (3.4-5.0) gm/dl Urine Protein (NEGATIVE) mg/dL Urine Glucose (UA) (NEGATIVE) mg/dL Prot Sulfosalicylic Acd (0) mg/dL Crossmatch 09/09/19 09/09/19 09/09/19 Range/Units 17:33 17:40 17:50 RBC (4.2-5.4) M/mm3 Hgb (12.5-16.0) gm/dL Hct (37.0-47.0) % RDW (11.5-14.0) % Plt Count (150-450) K/mm3 Immature Gran % (Auto) (0.001-0.429) % Neutrophils % (42-75.0) % Lymphocytes % (20-51) % Lymphocytes # (1.5-3.5) k/mm3 PT (9.1-10.7) Seconds INR (Anticoag Therapy) (0.92-1.08) INR pO2 226.6 H (83.0-108.0) mmHg Base Excess -3.4 L (-2.0-3.0) mmol/L ABG O2 Sat (Measured) 99.4 H (94.0-98.0) % Plasma Sodium (130-142) mmol/L Potassium (3.4-4.6) mmol/L Chloride (97-106) mmol/L Carbon Dioxide (24-32.6) mmol/L BUN (3-23) mg/dL Creatinine (0.4-1.4) mg/dL Est GFR (Non-Af Amer) (60-130) mL/min BUN/Creatinine Ratio (9.0-21.6) Random Glucose (70-110) mg/dL Calcium Adj for Albumin (8.4-10.2) mg/dL Magnesium (1.2-2.8) mg/dL ALT (19-67) U/L Alkaline Phosphatase (50-170) U/L Total Protein (6.2-8.2) gm/dL Albumin (3.4-5.0) gm/dl Urine Protein 100 H (NEGATIVE) mg/dL Urine Glucose (UA) 100 H (NEGATIVE) mg/dL Prot Sulfosalicylic Acd 3+ H (0) mg/dL Crossmatch See Detail 09/10/19 09/10/19 Range/Units 06:38 06:38 RBC (4.2-5.4) M/mm3 Hgb (12.5-16.0) gm/dL Hct (37.0-47.0) % RDW 15.4 H (11.5-14.0) % Plt Count 119 L (150-450) K/mm3 Immature Gran % (Auto) 0.50 H (0.001-0.429) % Neutrophils % 85.6 H (42-75.0) % Lymphocytes % 7.8 L (20-51) % Lymphocytes # 0.52 L (1.5-3.5) k/mm3 PT (9.1-10.7) Seconds INR (Anticoag Therapy) (0.92-1.08) INR pO2 (83.0-108.0) mmHg Base Excess (-2.0-3.0) mmol/L ABG O2 Sat (Measured) (94.0-98.0) % Plasma Sodium (130-142) mmol/L Potassium 4.8 H D (3.4-4.6) mmol/L Chloride (97-106) mmol/L Carbon Dioxide (24-32.6) mmol/L BUN 89 H D (3-23) mg/dL Creatinine 3.13 H D (0.4-1.4) mg/dL Est GFR (Non-Af Amer) 15 L D (60-130) mL/min BUN/Creatinine Ratio 28.4 H (9.0-21.6) Random Glucose 241 H (70-110) mg/dL Calcium Adj for Albumin (8.4-10.2) mg/dL Magnesium (1.2-2.8) mg/dL ALT 18 L (19-67) U/L Alkaline Phosphatase (50-170) U/L Total Protein 6.1 L (6.2-8.2) gm/dL Albumin 2.2 L (3.4-5.0) gm/dl Urine Protein (NEGATIVE) mg/dL Urine Glucose (UA) (NEGATIVE) mg/dL Prot Sulfosalicylic Acd (0) mg/dL Crossmatch - Exam Constitutional: Present: Alert, Oriented x3, Cooperative ENT Exam: Present: hearing grossly normal Respiratory: Present: rales - diffuse Cardiovascular/Chest: Present: normal peripheral pulses, regular rate, rhythm, no JVD Abdomen: Present: soft, other - decreased bowel sounds Extremity: Present: normal range of motion, normal inspection, no pedal edema Skin Exam: Present: normal color, warm/dry Neurologic: Present: alert, oriented x 3 Appearance: Present: appropriate appearance Assessment/Plan Plan Narrative: -Concern for GI bleed. -Iron studies pending -Dr Neno MD (General Surgery), consulted for higher level of care, prep for surgery in AM -Responded well to 2units of blood will recheck CBC and CMP, if there is concern of ongoing acute bleed will order nuclear bleeding scan -Continous telemetry -VSS Q6H FEN: NPO at midnight DVT PPX: Hold anti-coagulant, SCDs CODE STATUS: Full code Disposition: Awaiting labs and will consider nuclear bleeding scan - Problems/Diagnosis (1) Insulin dependent diabetes mellitus Problem: Chronic (2) Acute kidney injury superimposed on chronic kidney disease Problem: Acute (3) Pneumonia Problem: Acute Qualifiers: Pneumonia type: due to unspecified organism Laterality: unspecified laterality Lung location: unspecified part of lung Qualified Code(s): J18.9 - Pneumonia, unspecified organism (4) Colitis Problem: Acute (5) Fall Problem: Acute Qualifiers: Encounter type: initial encounter Qualified Code(s): W19.XXXA - Unspecified fall, initial encounter (6) Contusion of hand, right Problem: Acute Qualifiers: Encounter type: initial encounter Qualified Code(s): S60.221A - Contusion of right hand, initial encounter (7) Symptomatic anemia Problem: Acute (8) Diarrhea Problem: Acute (9) Nausea Problem: Acute (10) Congestive heart failure Problem: Acute
[2019-09-10] MEDS: VENLAFAXINE HCL 150 MG CAP.SR.24H PO SCH (08:09)
[2019-09-10] MEDS: metroNIDAZOLE 500 MG TABLET PO SCH ×2 (08:09→21:21)
[2019-09-10] MEDS: GABAPENTIN 600 MG TABLET PO SCH ×3 (08:10→17:42)
[2019-09-10] MEDS: rOPINIRole HCL 1 MG TABLET PO SCH ×3 (08:10→17:42)
[2019-09-10] MEDS: POTASSIUM CHLORIDE 20 MEQ TABLET.SA PO SCH (08:11)
[2019-09-10 08:14] LABS: Iron 154 mcg/dL (35-120); Transferrin Sat. (% Sat.) 64 % (15-55)
[2019-09-10] MEDS ORDERED: REVEFENACIN 175 MCG inhalation SCH (09:00)
[2019-09-10] MEDS: FAMOTIDINE 20 MG in DEXTROSE 5 % IN WATER 100 ML IV SCH ×4 (11:00→21:35)
[2019-09-10] MEDS: SODIUM, POTASSIUM,MAG SULFATES 1 KIT KIT PO ONE (11:03)
--- NOTE | 2019-09-10 11:49 | CONS ---
[facility] - General Date of Service: 09/10/19 Narrative: Anemia Source: patient Exam Limitations: no limitations - History of Present Illness Initial Comments: Nora is a pleasant 73-year-old female who was admitted with anemia. She denies any hematemesis. She denies any rectal bleeding. She denies abdominal pain. She believes that her last colonoscopy was a couple years ago. She is not taking any blood thinners. She had a fall yesterday. Her INR is 1.2. Her creatinine is elevated. Timing/Duration: 24 hours Severity: moderate Modifying Factors - (Worsens): Reports: movement Modifying Factors - (Improves): Reports: immobilization Associated Symptoms: denies symptoms Allergies/Adverse Reactions: Allergies nitrofurantoin [From Macrobid] Allergy (Intermediate, Verified 09/09/19 21:18) nitrofurantoin macrocrystalline [From Macrobid] Allergy (Intermediate, Verified 09/09/19 21:18) Sulfa (Sulfonamide Antibiotics) Allergy (Intermediate, Verified 09/09/19 21:18) Home Medications: Home Medications Medication Instructions Recorded Last Taken Levothyroxine Sodium [Levo-T] 25 mcg PO DAILY 09/09/16 Unknown Aspirin 81 mg PO DAILY 03/25/18 Unknown Atorvastatin Calcium [Lipitor] 40 mg PO HS 03/25/18 Unknown Calcitriol 0.25 mcg PO DAILY 03/25/18 Unknown Isosorbide Mononitrate [Imdur] 30 mg PO DAILY 03/25/18 Unknown Venlafaxine HCl [Venlafaxine HCl 150 mg PO DAILY 03/25/18 Unknown ER] Betamethasone/Propylene Glyc 15 gm TOPICAL DAILY 09/01/19 Unknown [Betamethasone Dp Aug 0.05% Crm] Methylphenidate HCl [Ritalin] 5 mg PO BID 09/01/19 Unknown Metoprolol Tartrate 75 mg PO BID 09/01/19 Unknown gabapentin 300 mg capsule 600 mg PO TID cap 09/01/19 Unknown melatonin 5 mg capsule 5 mg PO HS cap 09/01/19 Unknown montelukast 10 mg tablet 10 mg PO DAILY 09/01/19 Unknown Budesonide 1 mg INHALATION BID #5 ampul.neb 09/02/19 Unknown Furosemide [Lasix] 40 mg PO BID #60 tab 09/02/19 Unknown Insulin Glargine,Hum.rec.anlog 30 units SC HS #10 vial 09/02/19 Unknown [Lantus] Insulin Lispro [Humalog] 0 units SC ACHSINS #10 vial 09/02/19 Unknown Lisinopril [Zestril] 10 mg PO QAM #30 tab 09/02/19 Unknown Potassium Chloride [Klor-Con M20] 20 meq PO DAILY #30 tab.er.prt 09/02/19 Unknown Revefenacin [Yupelri] 175 mcg INHALATION DAILY #5 09/02/19 Unknown vial.neb Albuterol Sulfate/Ipratropium 3 ml INHALATION Q4H 09/09/19 Unknown [Duoneb 2.5-0.5MG/3ML Soln] Saccharomyces Boulardii [Florastor] 250 mg PO BID 09/09/19 Unknown guaiFENesin [Mucus Relief ER] 600 mg PO BID 09/09/19 Unknown rOPINIRole HCL [Requip] 1 mg PO TID 09/09/19 Unknown Medications - Medications Current Medications: Current Medications Albuterol/Ipratropium (Duoneb 2.5-0.5mg/3ml Soln) 3 ml IH Q4HRT [facility] Stop: 10/09/19 23:01 Last Admin: 09/10/19 10:34 Dose: 3 ml Documented by: Gabapentin (Neurontin) 600 mg PO TID [facility] Stop: 10/10/19 09:01 Last Admin: 09/10/19 08:10 Dose: 600 mg Documented by: Sodium Chloride (Sodium Chloride 0.9%) 500 mls @ 999 mls/hr IV .Q31M PRN PRN Reason: HYDRATION Stop: 10/09/19 16:36 Last Infusion: 09/09/19 17:53 Dose: Infused Documented by: Famotidine 20 mg/ Dextrose/ (Water) 102 mls @ 400 mls/hr IV Q12H [facility] Stop: 10/09/19 22:16 Last Admin: 09/10/19 11:00 Dose: 400 mls/hr Documented by: Levofloxacin (Levaquin) 500 mg PO Q48H [facility]; Protocol Stop: 10/09/19 22:17 Last Admin: 09/09/19 23:07 Dose: 500 mg Documented by: Levothyroxine Sodium (Synthroid) 25 mcg PO DAILY@0700 [facility] Stop: 10/10/19 07:01 Last Admin: 09/10/19 07:05 Dose: 25 mcg Documented by: Melatonin (Melatonin) 6,000 mcg PO HS [facility] Stop: 10/09/19 22:46 Last Admin: 09/09/19 23:02 Dose: Not Given Documented by: Metronidazole (Flagyl) 500 mg PO BID [facility]; Protocol Stop: 10/09/19 21:01 Last Admin: 09/10/19 08:09 Dose: 500 mg Documented by: Potassium Chloride (K-Dur) 20 meq PO DAILY [facility] Stop: 10/10/19 09:01 Last Admin: 09/10/19 08:11 Dose: Not Given Documented by: Ropinirole HCl (Requip) 1 mg PO TID [facility] Stop: 10/09/19 22:31 Last Admin: 09/10/19 08:10 Dose: 1 mg Documented by: Sucralfate (Carafate Suspension) 1 g PO [facility] Stop: 10/10/19 07:01 Last Admin: 09/10/19 07:05 Dose: 1 g Documented by: Venlafaxine HCl (Effexor Xr) 150 mg PO DAILY [facility] Stop: 10/10/19 09:01 Last Admin: 09/10/19 08:09 Dose: 150 mg Documented by: Review of Systems - Review of Systems Generalized/Overall Review: Present: Weakness, Malaise EENTM: Present: No Symptoms Reported Respiratory: Present: No Symptoms Reported Cardiac: Present: No Symptoms Reported Abdominal: Present: No Symptoms Reported Genitourinary: Present: No Symptoms Reported Musculoskeletal: Present: No Symptoms Reported Neurological: Present: No Symptoms Reported Skin: Present: No Symptoms Reported Endocrine: Present: No Symptoms Reported Physical Examination - Exam Vital Signs: Vital Signs - Last Taken Temp 36.6 C 09/10/19 10:16 Pulse 83 09/10/19 10:44 Resp 20 09/10/19 10:44 BP 134/69 09/10/19 10:16 Pulse Ox 91 L 09/10/19 10:34 O2 Oxygen Delivery Method Room Air Constitutional: Present: Alert, Oriented x3, Cooperative ENT Exam: Present: hearing grossly normal Eye Exam: right eye: normal inspection Neck: Present: non-tender Breasts: Present: Exam deferred Respiratory: Present: lungs clear, normal breath sounds, no respiratory distress Cardiovascular/Chest: Present: regular rate, rhythm Abdomen: Present: soft, nontender, no rebound tenderness. 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 nml as tested Appearance: Present: appropriate appearance Eye contact: Present: cooperative, good eye contact, normal speech Thoughts: Present: normal thought pattern, no apparent hallucination - Results and Findings: Lab/Microbiology results last 24 hrs: Abnormal/Pending Laboratory Last 24 HRS 09/10/19 09/10/19 09/10/19 07:58 06:38 06:38 RBC Hgb Hct RDW 15.4 H Plt Count 119 L Immature Gran % (Auto) 0.50 H Neutrophils % 85.6 H Lymphocytes % 7.8 L Lymphocytes # 0.52 L PT INR (Anticoag Therapy) pO2 Base Excess ABG O2 Sat (Measured) Plasma Sodium Potassium 4.8 H D Chloride Carbon Dioxide BUN 89 H D Creatinine 3.13 H D Est GFR (Non-Af Amer) 15 L D BUN/Creatinine Ratio 28.4 H Random Glucose 241 H Calcium Adj for Albumin Magnesium Iron 154 H TIBC 241 L Transferrin % Sat 64 H ALT 18 L Alkaline Phosphatase Total Protein 6.1 L Albumin 2.2 L Urine Protein Urine Glucose (UA) Prot Sulfosalicylic Acd Crossmatch 09/09/19 09/09/19 09/09/19 17:50 17:40 17:33 RBC Hgb Hct RDW Plt Count Immature Gran % (Auto) Neutrophils % Lymphocytes % Lymphocytes # PT INR (Anticoag Therapy) pO2 226.6 H Base Excess -3.4 L ABG O2 Sat (Measured) 99.4 H Plasma Sodium Potassium Chloride Carbon Dioxide BUN Creatinine Est GFR (Non-Af Amer) BUN/Creatinine Ratio Random Glucose Calcium Adj for Albumin Magnesium Iron TIBC Transferrin % Sat ALT Alkaline Phosphatase Total Protein Albumin Urine Protein 100 H Urine Glucose (UA) 100 H Prot Sulfosalicylic Acd 3+ H Crossmatch See Detail 09/09/19 09/09/19 09/09/19 16:45 16:45 16:45 RBC 2.17 L Hgb 6.2 L* D Hct 19.4 L* D RDW 15.4 H Plt Count 83 L Immature Gran % (Auto) 0.50 H Neutrophils % 84.1 H Lymphocytes % 9.2 L Lymphocytes # 0.51 L PT 12.0 H INR (Anticoag Therapy) 1.22 H pO2 Base Excess ABG O2 Sat (Measured) Plasma Sodium 145 H Potassium 2.7 L D Chloride 117 H Carbon Dioxide 15.6 L BUN 56 H Creatinine 1.83 H Est GFR (Non-Af Amer) 29 L BUN/Creatinine Ratio 30.6 H Random Glucose 276 H Calcium Adj for Albumin 7.1 L Magnesium 0.8 L Iron TIBC Transferrin % Sat ALT 9 L Alkaline Phosphatase 29 L Total Protein 3.0 L Albumin 1.0 L Urine Protein Urine Glucose (UA) Prot Sulfosalicylic Acd Crossmatch - Assessments/Findings (1) Acute anemia Problem: Acute Plan - Plan Plan: Patient has significant anemia which has improved with blood transfusion. We will plan to do an upper and lower endoscopy tomorrow to evaluate. We will need to monitor her creatinine with her bowel prep. We can do her upper and lower endoscopy at 8 AM tomorrow. She denies ever having a pill endoscopy done.
[2019-09-10 12:02] LABS: Hematocrit 41.6 % (37.0-47.0); Hemoglobin 13.7 gm/dL (12.5-16.0); Mean Cell Volume 88.3 fl (78-100); Mean Corpuscular Hemoglobin 29.1 pg (27-31); Mean Corpuscular Hgb Conc 32.9 g/dl (32-36); Mean Platelet Volume 10.5 fl (8-12.5); Neutrophil # 5.2 K/mm3 (1.3-6.0); Neutrophil % 83.6 % (42-75.0); Platelet Count 115 K/mm3 (150-450); Red Blood Count 4.71 M/mm3 (4.2-5.4); Red Cell Distribution Width 15.5 % (11.5-14.0); White Blood Count 6.2 K/mm3 (4.0-10.5)
[2019-09-10 12:14] LABS: Albumin * 2.4 gm/dl (3.4-5.0); Anion Gap 16.4 mmol/L (6.8-13.8); BUN/Creatinine Ratio 27.6 (9.0-21.6); Bilirubin, Total 0.5 mg/dL (0.0-1.1); Ca. Corrected For Albumin 9.6 mg/dL (8.4-10.2); Calcium * 8.6 mg/dL (7.9-10.9); Carbon Dioxide 22.6 mmol/L (24-32.6); Total Protein 6.4 gm/dL (6.2-8.2)
[2019-09-10] MEDS: INSULIN LISPRO 100 UNITS/ML VIAL SC SCH ×2 (17:44→21:24)
[2019-09-10] MEDS ORDERED: INSULIN GLARGINE,HUM.REC.ANLOG 100 UNITS/ML VIAL SC SCH (21:00)
[2019-09-10] MEDS: MELATONIN 3,000 MCG TABLET PO SCH (21:21)
[2019-09-11] MEDS: ALBUTEROL SULFATE/IPRATROPIUM 3 ML NEBU IH SCH ×4 (02:03→14:21)
[2019-09-11] MEDS: SODIUM, POTASSIUM,MAG SULFATES 1 KIT KIT PO ONE (05:28)
[2019-09-11] MEDS: LEVOTHYROXINE SODIUM 25 MCG TABLET PO SCH (06:59)
[2019-09-11] MEDS: GABAPENTIN 600 MG TABLET PO SCH ×3 (07:00→12:04)
[2019-09-11] MEDS: rOPINIRole HCL 1 MG TABLET PO SCH ×3 (07:00→12:04)
[2019-09-11] MEDS: SUCRALFATE 1 G/10 ML UDC PO SCH ×2 (07:03→11:09)
--- NOTE | 2019-09-11 07:44 | ANES ---
Anesthesia Pre Procedure Eval Vitals/Labs: Last Vital Signs Temp 36.5 C 09/11/19 06:47 Pulse 84 09/11/19 06:47 Resp 12 09/11/19 06:47 BP 141/68 09/11/19 06:47 Pulse Ox 99 09/11/19 06:47 HOME MEDICATIONS Levothyroxine Sodium [Levo-T] 25 mcg PO DAILY 09/09/16 [Last Taken Unknown] Aspirin 81 mg PO DAILY 03/25/18 [Last Taken Unknown] Atorvastatin Calcium [Lipitor] 40 mg PO HS 03/25/18 [Last Taken Unknown] Calcitriol 0.25 mcg PO DAILY 03/25/18 [Last Taken Unknown] Isosorbide Mononitrate [Imdur] 30 mg PO DAILY 03/25/18 [Last Taken Unknown] Venlafaxine HCl [Venlafaxine HCl ER] 150 mg PO DAILY 03/25/18 [Last Taken Unknown] Betamethasone/Propylene Glyc [Betamethasone Dp Aug 0.05% Crm] 15 gm TOPICAL DAILY 09/01/19 [Last Taken Unknown] Methylphenidate HCl [Ritalin] 5 mg PO BID 09/01/19 [Last Taken Unknown] Metoprolol Tartrate 75 mg PO BID 09/01/19 [Last Taken Unknown] gabapentin 300 mg capsule 600 mg PO TID cap 09/01/19 [Last Taken Unknown] melatonin 5 mg capsule 5 mg PO HS cap 09/01/19 [Last Taken Unknown] montelukast 10 mg tablet 10 mg PO DAILY 09/01/19 [Last Taken Unknown] Budesonide 1 mg INHALATION BID #5 ampul.neb 09/02/19 [Last Taken Unknown] Furosemide [Lasix] 40 mg PO BID #60 tab 09/02/19 [Last Taken Unknown] Insulin Glargine,Hum.rec.anlog [Lantus] 30 units SC HS #10 vial 09/02/19 [Last Taken Unknown] Insulin Lispro [Humalog] 0 units SC ACHSINS #10 vial 09/02/19 [Last Taken Unknown] Lisinopril [Zestril] 10 mg PO QAM #30 tab 09/02/19 [Last Taken Unknown] Potassium Chloride [Klor-Con M20] 20 meq PO DAILY #30 tab.er.prt 09/02/19 [Last Taken Unknown] Revefenacin [Yupelri] 175 mcg INHALATION DAILY #5 vial.neb 09/02/19 [Last Taken Unknown] Albuterol Sulfate/Ipratropium [Duoneb 2.5-0.5MG/3ML Soln] 3 ml INHALATION Q4H 09/09/19 [Last Taken Unknown] Saccharomyces Boulardii [Florastor] 250 mg PO BID 09/09/19 [Last Taken Unknown] guaiFENesin [Mucus Relief ER] 600 mg PO BID 09/09/19 [Last Taken Unknown] rOPINIRole HCL [Requip] 1 mg PO TID 09/09/19 [Last Taken Unknown] Allergies/Adverse Reactions: Allergies Allergy/AdvReac Type Severity Reaction Status Date / Time nitrofurantoin Allergy Intermediate Verified 09/09/19 21:18 [From Macrobid] nitrofurantoin Allergy Intermediate Verified 09/09/19 21:18 macrocrystalline [From Macrobid] Sulfa (Sulfonamide Allergy Intermediate Verified 09/09/19 21:18 Antibiotics) - Planned Procedure Planned Procedure: EGD Medication List Reviewed:: Yes Allergies Verified: Yes Medical History (Last Reviewed 09/11/19 @ 07:43 by Sidney Topete CRNA) CAD (coronary artery disease) COPD (chronic obstructive pulmonary disease) Chronic pain History of ganglion cyst Hypertension Hypothyroidism Restless leg Type II diabetes mellitus Surgical History (Last Reviewed 09/11/19 @ 07:44 by Sidney Topete CRNA) History of total hysterectomy History of coronary artery stent placement History of tonsillectomy Hx of appendectomy Family History (Last Reviewed 09/11/19 @ 07:44 by Sidney Topete CRNA) Father Diabetes Heart disease Mother Heart disease Sister Cancer mouth cancer Brother Cancer lung cancer - Family Anesthesia History Family History:: no untoward family reactions to anesthesia, no familial bleeding tendencies, no family history of clotting disorders, no family history of premature - Airway/Neck/Teeth Teeth Condition: missing Denture Type: Full upper, Full lower Mallampatti Score: 2 Thyromental (T-M) distance: > 6 cm Mandibulo Hyoid distance: > 3 cm - Respiratory Respiratory Physical: decreased breath sounds Smoking Status: Former smoker Discussed smoking cessation including day of surgery: No Sleep Apnea currently treated: No Sleep Apnea by current assessment: No Discussed Risks/Treatment of RONY: No - Cardiovascular Tolerate Activity: Poor Heart Sounds: S1 & S2, Regular - Anesthesia Assessment and Plan ASA Class: PS, III Anesthesia Type Plan: MAC
[2019-09-11] MEDS ORDERED: LIDOCAINE HCL 20 ML VIAL ONE (07:48)
[2019-09-11] MEDS ORDERED: PROPOFOL VIAL IV ONE (07:48)
[2019-09-11 08:01] LABS: Hematocrit 42.6 % (37.0-47.0); Mean Corpuscular Hemoglobin 28.9 pg (27-31); Mean Corpuscular Hgb Conc 32.9 g/dl (32-36); Mean Platelet Volume 10.5 fl (8-12.5); Neutrophil # 4.3 K/mm3 (1.3-6.0); Neutrophil % 80.3 % (42-75.0); Platelet Count 115 K/mm3 (150-450); Red Blood Count 4.84 M/mm3 (4.2-5.4); Red Cell Distribution Width 15.5 % (11.5-14.0); White Blood Count 5.4 K/mm3 (4.0-10.5)
[2019-09-11 08:14] LABS: Albumin * 2.6 gm/dl (3.4-5.0); BUN/Creatinine Ratio 26.2 (9.0-21.6); Bilirubin, Total 0.4 mg/dL (0.0-1.1); Ca. Corrected For Albumin 9.6 mg/dL (8.4-10.2); Calcium * 8.8 mg/dL (7.9-10.9); Carbon Dioxide 28.4 mmol/L (24-32.6); Potassium 4.4 mmol/L (3.4-4.6); Total Protein 6.7 gm/dL (6.2-8.2)
--- NOTE | 2019-09-11 09:00 | OR ---
Operative Report - Dictated Report Narrative: Date of Service: 09/11/19 Procedure: EGD and Colonoscopy to ascending colon Pre-procedure diagnosis: Anemia Post-procedure diagnosis: Anemia, normal EGD, diverticulosis, poor prep Surgeon: Samuel RobertsO. Anesthesia: MAC Indication for procedure: Nora is a pleasant 74-year-old female who was admitted with anemia. Description of procedure: After appropriate informed consent was obtained, patient was taken to the endoscopy suite placed in the left lateral decubitus position. Monitors were applied, appropriate sedation was achieved. A lubricated gastroscope was inserted and advanced into the second portion of the duodenum. The scope was slowly withdrawn, the duodenum appeared normal. The scope was withdrawn to the antrum. An antral biopsy was taken. A biopsy for Ruma was also taken. The scope was retroflexed, the stomach appeared normal. The body of the stomach also appeared normal. Scope was slowly withdrawn to the GE junction, the Z line appeared normal. The excess air was suctioned and the scope was slowly removed. Under the same sedation, a digital rectal exam was done which was normal. A lubricated colonoscope was inserted and advanced toward the cecum. The scope was able to be advanced to the acsending colon. The prep was poor and there were chunks of food present. The scope was slowly and sequentially withdrawn. There was diverticulosis present in the sigmoid colon. No other abnormalities were seen. Complications: none Specimens to pathology: none Estimated blood loss: minimal Prep quality: Poor Disposition: Patient likely had a diverticular bleed which has resolved.
--- NOTE | 2019-09-11 09:15 | ANES ---
Post Anesthesia Discharge - Transfer of Care Transfer of Care handoff given to nurse: Yes - Discharge from PACU Discharge from PACU when meets criteria: Yes - Discharge to ASU Discharge to ASU-no complications/pt stable: Yes
[2019-09-11] MEDS: INSULIN LISPRO 100 UNITS/ML VIAL SC SCH ×2 (10:04→11:59)
[2019-09-11] MEDS: VENLAFAXINE HCL 150 MG CAP.SR.24H PO SCH (10:21)
[2019-09-11] MEDS: POTASSIUM CHLORIDE 20 MEQ TABLET.SA PO SCH (10:21)
[2019-09-11] MEDS: metroNIDAZOLE 500 MG TABLET PO SCH (10:21)
--- NOTE | 2019-09-11 10:29 | ANES ---
Post Anesthesia Assessment - Vital Signs Vitals: Last Vital Signs Temp 36.7 C 09/11/19 09:26 Pulse 98 09/11/19 09:41 Resp 18 09/11/19 09:41 BP 160/83 H 09/11/19 09:41 Pulse Ox 98 09/11/19 09:41 Airway Patency: Normal - Mental Status Level Of Consciousness: Awake - Pain Level Pain Score: 0 - N/V Assessment Nausea/Vomiting Presence: None Dehydration:: No
[2019-09-11] MEDS: FAMOTIDINE 20 MG in DEXTROSE 5 % IN WATER 100 ML IV SCH ×2 (11:03)
--- NOTE | 2019-09-11 13:56 | DS ---
(1) Acute blood loss anemia Problem: Acute (2) Acute kidney injury superimposed on chronic kidney disease Problem: Acute (3) Pneumonia Problem: Acute Qualifiers: Pneumonia type: due to unspecified organism Laterality: unspecified laterality Lung location: unspecified part of lung Qualified Code(s): J18.9 - Pneumonia, unspecified organism (4) Colitis Problem: Acute (5) Fall Problem: Acute Qualifiers: Encounter type: initial encounter Qualified Code(s): W19.XXXA - Unspecified fall, initial encounter (6) Contusion of hand, right Problem: Acute Qualifiers: Encounter type: initial encounter Qualified Code(s): S60.221A - Contusion of right hand, initial encounter (7) Symptomatic anemia Problem: Acute (8) Diarrhea Problem: Acute Qualifiers: Diarrhea type: unspecified type Qualified Code(s): R19.7 - Diarrhea, unspecified (9) Nausea Problem: Acute (10) Congestive heart failure Problem: Chronic (11) Congestive heart failure (CHF) Problem: Chronic Qualifiers: Heart failure type: diastolic Heart failure chronicity: chronic Qualified Code(s): I50.32 - Chronic diastolic (congestive) heart failure (12) Insulin dependent diabetes mellitus Problem: Chronic Date of Discharge:: 09/11/19 Description of Stay: 74 y/o Caucasion Female with multiple cormorbidities admitted for symptomatic anemia most likely secondary to a diverticular bleed, pneumonia, colitis, EVELYN on CKD. Patient initially presented to office however she was hemodynamically unstable and complaining of headache due to a fall a couple days ago and her right hand was hurting. Patient was lethargic and having difficulty breathing. She also stated she is not well because she has been having diarrhea and NBNB emesis for approximately 2 days. Due to the acuity of the situation patient sent to the ER for further evaluation. Symptomatic anemia secondary to Hgb of < 6.[address] abd/pelvis concerning for bleed. Stool occult x 2 completed and negative. Patient received 2 units of blood and responded well. General Surgery concsulted, Dr Lazcano completed an endoscopy on 09/11/19 and conclusion was bleed most likely secondary to a bleeding diverticulosis, now resolved. EVELYN was evident due to elevation of Cr > 0.3 in comparison to previous labs, however that could have been secondary to dehydration from diarrhea, versus acute bleed versus lasix administered transfusion to prevent fluid overload since she has a current diagnosis Congestive Heart Failure. Patient had multiple imaging due to fall and low Hgb, Chest CT completed concerning for Pneumonia and started on Levaquin. Due to the diarrhea, and findings concerning for inflammatory process on CT abdomen/pelvis, colitis was suspected and started on flagyl. Stool test for c.diff was negative and Flagyl will be discontinued upon discharge. Imaging of her right forearm and hand confirmed fracture of her right thumb due to fall and now in splint and hand in sleeve. Will follow up with ortho outpatient. Consult for ortho to be done on follow up visit with PCP outpatient. CT head unremarkable, no acute bleed. Medication upon discharge: Levaquin 500 mg PO Q48H X 5 days Follow up appointments: PCP: Dr Kali MD Disposition: Patient is stable for discharge. Procedures Performed: see notes below - Endoscopy completed by Dr. Lazcano List Procedures: Endoscopy by Dr Lazcano Results and Findings: Pending Mircobiology Results 09/09/19 17:33 Urine,Catheterized Urine Culture - Preliminary No Growth 09/09/19 17:15 Blood Blood Culture - Preliminary NO GROWTH 24 HOURS 09/09/19 16:45 Blood Blood Culture - Preliminary NO GROWTH 24 HOURS Lab Pending Results 09/09/19 16:45: WBC 5.6, RBC 2.17 L, Hgb 6.2 L* D, Hct 19.4 L* D, MCV 89.4, MCH 28.6, MCHC 32.0, RDW 15.4 H, Plt Count 83 L, MPV 10.2, Immature Gran % (Auto) 0.50 H, Immature Gran # (Auto) 0.03, Neutrophils % 84.1 H, Lymphocytes % 9.2 L, Monocytes % 4.5, Eosinophils % 1.3, Basophils % 0.4, Nucleated RBC % 0.0, Neutrophils # 4.7, Lymphocytes # 0.51 L, Monocytes # 0.3, Eosinophils # 0.1, Absolute Basophils 0.0 09/09/19 16:45: PT 12.0 H, INR (Anticoag Therapy) 1.22 H, PTT ([place]) 30.6 09/09/19 16:45: Sodium 142, Plasma Sodium 145 H, Potassium 2.7 L D, Chloride 117 H, Carbon Dioxide 15.6 L, Anion Gap 12.1, BUN 56 H, Creatinine 1.83 H, Est GFR (Non-Af Amer) 29 L, BUN/Creatinine Ratio 30.6 H, Random Glucose 276 H, Calcium , Calcium Adj for Albumin 7.1 L, Magnesium 0.8 L, Total Bilirubin 0.2, AST 8, ALT 9 L, Alkaline Phosphatase 29 L, Troponin I 0.040, B-Natriuretic Peptide 526, Total Protein 3.0 L, Albumin 1.0 L 09/09/19 17:33: Urine Color Yellow, Urine Appearance Clear, Urine pH 5.0, Ur Specific [place] >=1.030, Urine Protein 100 H, Urine Glucose (UA) 100 H, Urine Ketones Negative, Urine Blood Negative, Urine Nitrate Negative, Urine Bilirubin Negative, Prot Sulfosalicylic Acd 3+ H, Urine Urobilinogen Normal, Ur Leukocyte Esterase Negative, Urine RBC None seen, Urine WBC None seen, Ur Epithelial Cells None seen, Urine Bacteria None seen, Urine Culture Comments No culture indicated 09/09/19 17:40: Blood Type O Positive, Antibody Screen Negative, Crossmatch See Detail 09/09/19 17:50: Stool Occult Blood Negative 09/09/19 17:50: pCO2 41.3, pO2 226.6 H, HCO3 22.1, Total CO2 23.4, Base Excess - 3.4 L, ABG pH 7.35, ABG O2 Sat (Measured) 99.4 H 09/09/19 18:22: Lactic Acid, Venous 1.2 09/10/19 00:55: Lactic Acid, Venous 1.6 09/10/19 02:45: Hgb 13.3, Hct 41.0 09/10/19 06:38: WBC 6.7, RBC 4.67, Hgb 13.4, Hct 41.0, MCV 87.8, MCH 28.7, MCHC 32.7, RDW 15.4 H, Plt Count 119 L, MPV 10.0, Immature Gran % (Auto) 0.50 H, Immature Gran # (Auto) 0.03, Neutrophils % 85.6 H, Lymphocytes % 7.8 L, Monocytes % 3.6, Eosinophils % 2.0, Basophils % 0.5, Nucleated RBC % 0.0, Neutrophils # 5.7, Lymphocytes # 0.52 L, Monocytes # 0.2, Eosinophils # 0.1, Absolute Basophils 0.0 09/10/19 06:38: Sodium 136, Plasma Sodium 138, Potassium 4.8 H D, Chloride 105, Carbon Dioxide 26.6, Anion Gap 9.2, BUN 89 H D, Creatinine 3.13 H D, Est GFR (Non-Af Amer) 15 L D, BUN/Creatinine Ratio 28.4 H, Random Glucose 241 H, Calcium 7.9, Calcium Adj for Albumin 9.0, Magnesium 1.8, Total Bilirubin 0.6, AST 14, ALT 18 L, Alkaline Phosphatase 54, Total Protein 6.1 L, Albumin 2.2 L 09/10/19 06:38: Lactic Acid, Venous 1.2 09/10/19 07:58: Iron 154 H, TIBC 241 L, Transferrin % Sat 64 H 09/10/19 12:00: WBC 6.2, RBC 4.71, Hgb 13.7, Hct 41.6, MCV 88.3, MCH 29.1, MCHC 32.9, RDW 15.5 H, Plt Count 115 L, MPV 10.5, Immature Gran % (Auto) 0.20, Immature Gran # (Auto) 0.01, Neutrophils % 83.6 H, Lymphocytes % 9.1 L, Monocytes % 4.5, Eosinophils % 2.1, Basophils % 0.5, Nucleated RBC % 0.0, Neutrophils # 5.2, Lymphocytes # 0.57 L, Monocytes # 0.3, Eosinophils # 0.1, Absolute Basophils 0.0 09/10/19 12:00: Sodium 137, Plasma Sodium 140, Potassium 5.0 H, Chloride 103, Carbon Dioxide 22.6 L, Anion Gap 16.4 H, BUN 86 H, Creatinine 3.12 H, Est GFR (Non-Af Amer) 15 L, BUN/Creatinine Ratio 27.6 H, Random Glucose 290 H, Calcium 8.6, Calcium Adj for Albumin 9.6, Total Bilirubin 0.5, AST 16, ALT 15 L, Alkaline Phosphatase 55, Total Protein 6.4, Albumin 2.4 L 09/10/19 12:56: Stool Occult Blood Negative 09/10/19 13:00: Stl C.difficile Tox A&B Negative 09/10/19 14:48: Stool Occult Blood Negative 09/11/19 07:55: WBC 5.4, RBC 4.84, Hgb 14.0, Hct 42.6, MCV 88.0, MCH 28.9, MCHC 32.9, RDW 15.5 H, Plt Count 115 L, MPV 10.5, Immature Gran % (Auto) 0.60 H, Immature Gran # (Auto) 0.03, Neutrophils % 80.3 H, Lymphocytes % 10.8 L, Monocytes % 5.8, Eosinophils % 1.9, Basophils % 0.6, Nucleated RBC % 0.0, Neutrophils # 4.3, Lymphocytes # 0.58 L, Monocytes # 0.3, Eosinophils # 0.1, Absolute Basophils 0.0 09/11/19 07:55: Sodium 141, Plasma Sodium 143 H, Potassium 4.4, Chloride 104, Carbon Dioxide 28.4, Anion Gap 13.0, BUN 65 H, Creatinine 2.48 H D, Est GFR (Non-Af Amer) 20 L D, BUN/Creatinine Ratio 26.2 H, Random Glucose 225 H, Calcium 8.8, Calcium Adj for Albumin 9.6, Total Bilirubin 0.4, AST 14, ALT 17 L, Alkaline Phosphatase 56, Total Protein 6.7, Albumin 2.6 L Discharge Location: Home Disposition: Home self-care Condition: Stable Discharge Activity: Activity as tolerated Discharge Diet: Consistent carbs, Low salt Referrals: Kiet Bass MD [Primary Care Provider] - One Week Consultation Done:: Dr. Lazcano (General Surgery) Prescriptions (Any new or edited meds): Levofloxacin [Levaquin] 500 mg PO Q48H 5 Days #5 tab Transmission Status: Received by [place], [place] Complete Home Medications List: Complete Home Medication List: Levothyroxine Sodium [Levo-T] 25 mcg PO DAILY 09/09/16 Aspirin 81 mg PO DAILY 03/25/18 Atorvastatin Calcium [Lipitor] 40 mg PO HS 03/25/18 Calcitriol 0.25 mcg PO DAILY 03/25/18 Isosorbide Mononitrate [Imdur] 30 mg PO DAILY 03/25/18 Venlafaxine HCl [Venlafaxine HCl ER] 150 mg PO DAILY 03/25/18 Betamethasone/Propylene Glyc [Betamethasone Dp Aug 0.05% Crm] 15 gm TOPICAL DAILY 09/01/19 Methylphenidate HCl [Ritalin] 5 mg PO BID 09/01/19 Metoprolol Tartrate 75 mg PO BID 09/01/19 gabapentin 300 mg capsule 600 mg PO TID cap 09/01/19 melatonin 5 mg capsule 5 mg PO HS cap 09/01/19 montelukast 10 mg tablet 10 mg PO DAILY 09/01/19 Budesonide 1 mg INHALATION BID #5 ampul.neb 09/02/19 Furosemide [Lasix] 40 mg PO BID #60 tab 09/02/19 Insulin Glargine,Hum.rec.anlog [Lantus] 30 units SC HS #10 vial 09/02/19 Insulin Lispro [Humalog] 0 units SC ACHSINS #10 vial 09/02/19 Lisinopril [Zestril] 10 mg PO QAM #30 tab 09/02/19 Potassium Chloride [Klor-Con M20] 20 meq PO DAILY #30 tab.er.prt 09/02/19 Revefenacin [Yupelri] 175 mcg INHALATION DAILY #5 vial.neb 09/02/19 Albuterol Sulfate/Ipratropium [Duoneb 2.5-0.5MG/3ML Soln] 3 ml INHALATION Q4H 09/09/19 Saccharomyces Boulardii [Florastor] 250 mg PO BID 09/09/19 guaiFENesin [Mucus Relief ER] 600 mg PO BID 09/09/19 rOPINIRole HCL [Requip] 1 mg PO TID 09/09/19 Levofloxacin [Levaquin] 500 mg PO Q48H 5 Days #5 tab 09/11/19
[2019-09-11 15:52] VITALS: BP 151/65
== END 2019-09-11 16:00 | disposition home or self-care (01) | DRG 377 ==
LOC: ER 16:17 → MS 20:20
PROVIDERS: ADMIT Family Medicine; ATTEND Family Medicine
DX: R53.1 Weakness; Z79.4 Long term (current) use of insulin; I50.32 Chronic diastolic (congestive) heart failure; K57.31 Diverticulosis of large intestine without perforation or abscess with bleeding; Z87.891 Personal history of nicotine dependence; W01.0XXA Fall on same level from slipping, tripping and stumbling without subsequent striking against object, initial encounter; N18.9 Chronic kidney disease, unspecified; R09.02 Hypoxemia; D63.1 Anemia in chronic kidney disease; J18.9 Pneumonia, unspecified organism; S62.291A Other fracture of first metacarpal bone, right hand, initial encounter for closed fracture; E11.22 Type 2 diabetes mellitus with diabetic chronic kidney disease; R19.7 Diarrhea, unspecified; N17.9 Acute kidney failure, unspecified; D62 Acute posthemorrhagic anemia; I13.0 Hypertensive heart and chronic kidney disease with heart failure and stage 1 through stage 4 chronic kidney disease, or unspecified chronic kidney disease
CPT/HCPCS: 36415; 36600; 70450; 71010; 71045; 71260; 72125; 73130; 74177; 80053; 81001; 82272; 82803; 83519; 83540; 83550; 83605; 83735; 83880; 84484; 85014; 85018; 85025; 85610; 85730; 86850; 87040; 87086; 87493; 93005; 94640; 94660; 94664; 96361; 96365; 96366; 97161; 99291; 99292; P9016; Q9967